=== PATIENT | male | born 1940 | race Caucasian/White ===

== ENCOUNTER 2022-03-25 09:05 | Outpatient (CLI) | payer MEDICARE, SELFPAY ==
--- NOTE | 2022-03-25 09:15 | CRLHL7_ITS ---
For Patients: As a result of the Century Cures Act, medical imaging exams and procedure reports are released immediately into your electronic medical record. You may view this report before your referring provider. If you have questions, please contact your health care provider. INDICATION: Dysphagia for 4-6 weeks. The patient recently ingested a fish bone but was able to cough it up. Globus sensation. TECHNIQUE: Single and double contrast esophagram. FINDINGS: No evidence for aspiration or penetration of barium. No holdup of barium in the valleculae or piriform recesses. With the patient upright, the esophageal peristalsis was largely normal except for occasional intermittent tertiary contractions. No stricture, mass, or obstruction. No esophageal hiatal hernia. With the patient in the left and right lateral decubitus positions there was incomplete emptying of barium from the esophagus and 1 or 2 episodes of mild reflux. No evidence for reflux esophagitis. 3 minutes 1 second fluoroscopy time utilized. IMPRESSION: 1. Intermittent occasional tertiary contractions. 2. One or 2 episodes of reflux with the patient in the recumbent and decubitus positions. 3. No aspiration or penetration of barium. No hernia or reflux esophagitis. Dictated by Ted Colunga MD @ 03/25/2022 10:37:25 AM (Electronically Signed)
== END 2022-03-25 09:06 | disposition home or self-care (01) ==
PROVIDERS: PCP Internal Medicine; Visit Provider Otolaryngology
DX: R13.10 Dysphagia, unspecified (principal)
CPT/HCPCS: 74221